=== PATIENT | male | born 1970 ===

== ENCOUNTER 2019-03-16 07:55 | Day surgery (SDC) | payer BC ==
[2019-03-16 08:44] VITALS: BMI 30.5
[2019-03-16] MEDS ORDERED: Lactated Ringer's 500 ML IV ONE (08:49)
[2019-03-16] MEDS ORDERED: Propofol 10 mg/ml Inj (20 ML) ONE (12:01)
[2019-03-16] MEDS ORDERED: Midazolam 2 MG/2 ML VIAL ONE (12:01)
[2019-03-16 12:28] VITALS: TEMP 97; O2SAT 96
[2019-03-16 12:59] VITALS: BP 101/60; PULSE 46; RESP 14
== END 2019-03-16 14:02 | disposition home or self-care (01) ==
LOC: H.ENDO 07:55
PROVIDERS: ATTEND Internal Medicine Gastroenterology
DX: Z12.11 Encounter for screening for malignant neoplasm of colon (principal); D64.9 Anemia, unspecified
CPT/HCPCS: 45378; J2001; J2250; J2704; J7120